=== PATIENT | male | born 1995 | race African-American/Black ===

== ENCOUNTER 2018-06-10 16:43 | Emergency (ER) | payer SELFPAY ==
[~2018-06-10] VITALS: Ht 175.3 cm; Wt 83.4 kg
[2018-06-10 17:15] VITALS: BP 115/73
[2018-06-10] MEDS ORDERED: SODIUM CHLORIDE FLUSH 10ML SYR IVF ONE (18:00)
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
--- NOTE | 2018-06-10 18:55 | NUR ---
waiting CT c-spine results
[2018-06-10] MEDS ORDERED: OMNIPAQUE 350 MG/ML, 100ML BOTTLE ONE (19:21)
--- NOTE | 2018-06-10 20:47 | NUR ---
Patient/Caregiver given discharge instructions and they have confirmed that they understand the instructions. Patient ambulatory with steady gait.
== END 2018-06-10 20:50 | disposition home or self-care (01) ==
LOC: ED 20:44
DX: S39.012A Strain of muscle, fascia and tendon of lower back, initial encounter (principal); S29.012A Strain of muscle and tendon of back wall of thorax, initial encounter; S16.1XXA Strain of muscle, fascia and tendon at neck level, initial encounter; V49.49XA Driver injured in collision with other motor vehicles in traffic accident, initial encounter; Y93.89 Activity, other specified; Y92.89 Other specified places as the place of occurrence of the external cause; Y99.8 Other external cause status
CPT/HCPCS: 71046; 72072; 72110; 72125; 73564; 74177; 99284; Q9967